=== PATIENT | female | born 1980 | race Caucasian/White ===

== ENCOUNTER 2018-01-03 02:29 | Emergency (ER) | payer SELFPAY ==
[2018-01-03] MEDS ORDERED: ASPIRIN 81 MG TABLET, CHEWABLE PO ONE (03:20)
--- NOTE | 2018-01-03 03:22 | ER Document Report ---
ED General - General Chief Complaint: Chest Pain Stated Complaint: CHEST PAIN Time Seen by Provider: 01/03/18 03:14 Notes: Patient is a 37-year-old female that comes to the emergency department for chief complaint of a sharp pain in her left lower rib area that woke her up from sleep tonight, she states that it is improved now but she still feels a intermittent painful sensation in the same area. She denies injury, denies nausea or vomiting, denies fever or chills. She does report resolving congestion, cold, cough. She does not smoke, she denies any daily medications, she denies any surgeries or past medical history. She denies alcohol or recreational drugs. She denies family history of PR or pulmonary embolism. She denies recent long distance travel, lower extremity swelling, and denies shortness of breath. TRAVEL OUTSIDE OF THE [place] IN LAST 30 DAYS: No - Related Data Allergies/Adverse Reactions: shellfish derived Allergy (Severe, Verified 10/28/15 18:52) Anaphylaxis Past Medical History - General Information source: Patient - Social History Smoking Status: Never Smoker Frequency of alcohol use: None Drug Abuse: None Lives with: Family Family History: Reviewed & Not Pertinent Patient has suicidal ideation: No Patient has homicidal ideation: No - Medical History Medical History: Negative Renal/ Medical History: Denies: Hx Peritoneal Dialysis Surgical Hx: Negative - Immunizations Immunizations up to date: Yes Hx Diphtheria, Pertussis, Tetanus Vaccination: Yes Review of Systems - Review of Systems Constitutional: No symptoms reported EENT: See HPI Cardiovascular: See HPI Respiratory: See HPI Gastrointestinal: No symptoms reported Genitourinary: No symptoms reported Female Genitourinary: No symptoms reported Musculoskeletal: No symptoms reported Skin: No symptoms reported Hematologic/Lymphatic: No symptoms reported Neurological/Psychological: No symptoms reported Physical Exam - Vital signs Vitals: Temp Pulse Resp BP Pulse Ox 98.3 F 92 18 141/97 H 98 01/03/18 02:31 01/03/18 02:31 01/03/18 02:31 01/03/18 02:31 01/03/18 02:31 - Notes Notes: GENERAL: Alert, interacts well. No acute distress. Smiling, talkative, well- appearing. HEAD: Normocephalic, atraumatic. EYES: Pupils equal, round, and reactive to light. Extraocular movements intact. ENT: Oral mucosa moist, tongue midline. Oral pharyngeal exam with minimal erythema of the posterior pharynx, mild sinus congestion, otherwise unremarkable. NECK: Full range of motion. Supple. Trachea midline. LUNGS: Clear to auscultation bilaterally, no wheezes, rales, or rhonchi. No respiratory distress. No noted tenderness on palpation. HEART: Regular rate and rhythm. No murmur ABDOMEN: Soft, non-tender. Non-distended. Bowel sounds present in all 4 quadrants. GENITOURINARY: Deferred EXTREMITIES: Moves all 4 extremities spontaneously. No edema, normal radial and dorsalis pedis pulses bilaterally. No cyanosis. BACK: no cervical, thoracic, lumbar midline tenderness. No saddle anesthesia, normal distal neurovascular exam. NEUROLOGICAL: Alert and oriented x3. Normal speech. [cranial nerves II through XII grossly intact]. PSYCH: Normal affect, normal mood. SKIN: Warm, dry, normal turgor. No rashes or lesions noted. Course - Re-evaluation Re-evalutation: Patient smiling and well-appearing. She can point to a very specific spot of pain in her left lower ribs anteriorly, there is not tender to palpation. She does have some sinus congestion but her ENT examination is unremarkable otherwise. She does report recent cough and cold symptoms. She is not tachycardic, hypoxic, and does not have a fever. EKG shows sinus rhythm at a rate of 87, [place] interval is 144, QTc is 506. Normal axis. No T wave inversions or ST segment changes in consecutive leads. Slightly flattened T waves anteriorly in lead V3 only, no ischemic changes from prior. Chest x-ray is unremarkable. CBC shows mild leukocytosis with elevation of neutrophils but no bandemia. This is nonspecific given patient's lack of symptoms and presentation at this time. Chemistry unremarkable, initial troponin is negative. Given her recent upper respiratory illness, recent coughing symptoms, I have higher suspicion of pleurisy or musculoskeletal source, she does not smoke, no recent travel, no tachycardia, no shortness of breath, minimal current symptoms. Low suspicion of PE. Her presentation does not suggest aortic dissection. Based on her atypical symptoms and history I also have low suspicion of ACS. Her heart score is 1. Repeat troponin is negative. I discussed with patient. Ice most suspect pleurisy based on her symptoms and HPI , after discussion decision was made to give patient a dose of dexamethasone, discussed follow-up with primary care, discussed return precautions in detail. Patient states satisfaction and agreement with plan. - Vital Signs Vital signs: Temp Pulse Resp BP Pulse Ox 98.6 F 92 20 149/71 H 99 01/03/18 06:38 01/03/18 02:31 01/03/18 06:38 01/03/18 06:38 01/03/18 06:38 - Laboratory Result Diagrams: 01/03/18 03:26 01/03/18 03:26 Laboratory results interpreted by me: 01/03/18 01/03/18 03:26 03:26 WBC 13.2 H MCV 78 L MCH 25.9 L RDW 16.6 H Absolute Neutrophils 9.1 H BUN 21 H Discharge - Discharge Clinical Impression: Left sided chest pain Upper respiratory infection Qualifiers: URI type: unspecified URI Qualified Code(s): J06.9 - Acute upper respiratory infection, unspecified Condition: Stable Disposition: HOME, SELF-CARE Additional Instructions: Your workup at this time does not show any concerning abnormalities. Your presentation and symptoms along with your workup are most consistent with pleurisy as the cause of your symptoms. You have been medicated for this. This should slowly resolve with time. Follow-up with primary care. Return if you worsen including severe worsening pain, difficulty breathing, spiking fever , passing out, or any other concerning or worsening symptoms. Forms: Treatment of Relative/Child Referrals: HEATHER REGAN MD [Primary Care Provider] - Follow up as needed
[2018-01-03 03:34] LABS: ABSOLUTE BASOPHILS # (AUTO) 0.1 10^3/uL (0.0-0.2); ABSOLUTE EOSINOPHILS # (AUTO) 0.4 10^3/uL (0.0-0.6); ABSOLUTE LYMPHOCYTES (AUTO) 2.8 10^3/uL (0.5-4.7); ABSOLUTE MONOCYTES (AUTO) 0.8 10^3/uL (0.1-1.4); ABSOLUTE NEUT (AUTO) 9.1 10^3/uL (1.7-8.2); BASOPHILS % (AUTO) 0.5 % (0-2); EOSINOPHILS % (AUTO) 2.9 % (0-6); HEMATOCRIT 39.1 % (36.0-47.0); HEMOGLOBIN 12.9 g/dL (12.0-15.5); LYMPHOCYTES % (AUTO) 21.1 % (13-45); MEAN CORPUSCULAR HEMOGLOBIN 25.9 pg (27.0-33.4); MEAN CORPUSCULAR VOLUME 78 fl (80-97); MONOCYTES % (AUTO) 6.4 % (3-13); PLATELET COUNT 415 10^3/uL (150-450); RED BLOOD COUNT 4.99 10^6/uL (3.72-5.28); RED CELL DISTRIBUTION WIDTH 16.6 % (11.5-14.0); SEGMENTED NEUTROPHILS % (AUTO) 69.1 % (42-78); TOTAL CELLS COUNTED % (AUTO) 100 %; WHITE BLOOD COUNT 13.2 10^3/uL (4.0-10.5)
[2018-01-03 03:57] LABS: ALANINE AMINOTRANSFERASE 24 U/L (9-52); ALBUMIN 4.1 g/dL (3.5-5.0); ALKALINE PHOSPHATASE 98 U/L (38-126); ANION GAP 9 (5-19); ASPARTATE AMINO TRANSFERASE 21 U/L (14-36); BILIRUBIN,DIRECT 0.3 mg/dL (0.0-0.4); BILIRUBIN,TOTAL 0.4 mg/dL (0.2-1.3); BLOOD UREA NITROGEN 21 mg/dL (7-20); CALCIUM 9.5 mg/dL (8.4-10.2); CARBON DIOXIDE 24 mmol/L (22-30); CHLORIDE 104 mmol/L (98-107); CREATINE KINASE 41 U/L (30-135); GLUCOSE 98 mg/dL (75-110); POTASSIUM 3.9 mmol/L (3.6-5.0); SODIUM 137.2 mmol/L (137-145); TOTAL PROTEIN 7.9 g/dL (6.3-8.2)
--- NOTE | 2018-01-03 04:03 | RADIOLOGY REPORT (SQ) ---
EXAM DESCRIPTION: X-ray single view chest. CLINICAL HISTORY: 37 years Female, chest pain COMPARISON: Prior chest x-ray performed on 08/16/2014. TECHNIQUE: Single portable view of the chest performed on 01/03/2018 at 3:39 AM FINDINGS: The lungs are well expanded and are clear. There is no evidence of a pneumothorax. The cardiac silhouette is normal in size and configuration. The mediastinal contours are normal. No acute osseous abnormality is identified. No focal soft tissue abnormalities are seen. Lines and tubes: None. IMPRESSION: No evidence of acute intrathoracic disease.
[2018-01-03 04:09] LABS: CREATINE KINASE MB 0.38 ng/mL (<4.55)
[2018-01-03 04:17] LABS: TROPONIN I < 0.012 ng/mL
[2018-01-03] MEDS ORDERED: DEXAMETHASONE SOD PHOS INJ 10 MG/1 ML VIAL IV ONE (06:23)
[2018-01-03 06:41] VITALS: BP 149/71
--- NOTE | 2018-01-03 06:49 | EKG REPORT ---
SEVERITY:- ABNORMAL ECG - SINUS OR ECTOPIC ATRIAL RHYTHM NONSPECIFIC INTRAVENTRICULAR CONDUCTION DELAY : Confirmed by: aHile Laguna 03-Jan-2018 06:47:57
== END 2018-01-03 06:40 | disposition home or self-care (01) ==
LOC: ER 02:29
DX: R07.81 Pleurodynia (principal); J06.9 Acute upper respiratory infection, unspecified; R05 Cough; R09.81 Nasal congestion; Z87.892 Personal history of anaphylaxis; Z91.013 Allergy to seafood
CPT/HCPCS: 93005; 99285; 96374; 36415; 82553; 82550; 84703; 85025; 80053; 84484; 71045; 93010; J1100